=== PATIENT | male | born 1980 | race African-American/Black ===

== ENCOUNTER 2018-10-24 23:08 | Emergency (ER) | payer SELFPAY ==
[2018-10-24] MEDS ORDERED: Ondansetron PF 4 MG/2 ML Vial ONE (23:24)
[2018-10-24] MEDS ORDERED: Ondansetron ODT 4 MG TAB ONE (23:34)
[2018-10-24 23:47] LABS: #Basophils 0.1 thou/uL (0.0-0.2); #Eosinphils 0.1 thou/uL (0.0-0.7); #Lymphocytes 2.8 thou/uL (1.20-3.40); #Monocytes 0.8 thou/uL (0.11-0.59); #Neutrophils 3.8 thou/uL (1.40-6.50); %Basophils 1.7 % (0.0-1.0); %Eosinophils 1.7 % (0.0-10.0); %Lymphocytes 36.8 % (21.0-51.0); %Neutrophils 49.8 % (42.0-75.0); Hemoglobin 12.3 g/dL (14.0-18.0); Mean Corpuscular Volume 84.2 fL (78.0-98.0); Mean Platelet Volume 6.6 fL (7.4-10.4); Platelet Count 338 thou/uL (130-400); RBC Distribution Width 15.2 % (11.5-14.5); Red Blood Cell (RBC) Count 4.57 mill/uL (4.70-6.10); White Blood Cell (WBC) Count 7.7 thou/uL (4.8-10.8)
[2018-10-25] LABS: ALT (SGPT) 24 U/L (8-55); AST (SGOT) 17 U/L (5-34); Albumin 4.6 g/dL (3.5-5.0); Alkaline Phosphatase 116 U/L (40-150); Anion Gap 14 mmol/L (10-20); BUN (Urea Nitrogen) 13 mg/dL (8.9-20.6); Bilirubin, Total 0.7 mg/dL (0.2-1.2); Calc. Creatinine Clearance 0 mL/min (70-130); Calcium 9.9 mg/dL (7.8-10.44); Carbon Dioxide 27 mmol/L (22-29); Chloride 104 mmol/L (98-107); Estimated GFR-MDRD 68; Globulin 3.3 g/dL (2.4-3.5); Glucose 77 mg/dL (70-105); Potassium 3.7 mmol/L (3.5-5.1); Protein, Total 7.9 g/dL (6.0-8.3); Sodium 141 mmol/L (136-145)
[2018-10-25] MEDS ORDERED: Ketorolac Tromethamine 60 MG/2 ML VIAL ONE (00:02)
== END 2018-10-25 00:07 | disposition home or self-care (01) ==
LOC: BURERS 23:08
DX: R11.2 Nausea with vomiting, unspecified (principal); R19.7 Diarrhea, unspecified; F17.210 Nicotine dependence, cigarettes, uncomplicated
CPT/HCPCS: 36415; 80053; 85025; 87804; 96372; J1885; J2405; Q0162

== ENCOUNTER 2019-07-07 17:27 | Emergency (ER) | payer SELFPAY | END 2019-07-07 17:39 | disposition left against medical advice (07) | LOC: BURERS 17:27 | DX: Z53.21 Procedure and treatment not carried out due to patient leaving prior to being seen by health care provider (principal) ==

== ENCOUNTER 2020-02-04 22:17 | Emergency (ER) | payer SELFPAY ==
[2020-02-04] MEDS ORDERED: predniSONE 20 MG TAB ONE (22:28)
== END 2020-02-04 23:03 | disposition home or self-care (01) ==
LOC: BURERS 22:17
DX: J45.901 Unspecified asthma with (acute) exacerbation (principal); F41.9 Anxiety disorder, unspecified
CPT/HCPCS: J7512; J7620

== ENCOUNTER 2020-03-20 13:26 | Emergency (ER) | payer SELFPAY ==
[2020-03-20] MEDS ORDERED: predniSONE 20 MG TAB ONE (13:44)
== END 2020-03-20 14:32 | disposition home or self-care (01) ==
LOC: BURERS 13:26
DX: J45.901 Unspecified asthma with (acute) exacerbation (principal); Z79.899 Other long term (current) drug therapy
CPT/HCPCS: J7512; J7620